=== PATIENT | female | born 1970 | race Caucasian/White ===

== ENCOUNTER 2018-06-14 00:12 | Emergency (ER) | payer SELFPAY ==
[~2018-06-14] VITALS: Ht 154.9 cm; Wt 70.4 kg
[~2018-06-14 00:12] MED LIST: iron PO
[2018-06-14] MEDS ORDERED: KETOROLAC 60MG/2ML VIAL IM STA (08:07)
[2018-06-14 09:00] VITALS: BP 130/65
== END 2018-06-14 11:23 | disposition home or self-care (01) ==
LOC: ER 00:12
DX: S83.92XA Sprain of unspecified site of left knee, initial encounter (principal); D64.9 Anemia, unspecified; X50.1XXA Overexertion from prolonged static or awkward postures, initial encounter; Y93.89 Activity, other specified; Y92.89 Other specified places as the place of occurrence of the external cause; Y99.8 Other external cause status
CPT/HCPCS: 73560; 96372; 99283; J1885; L1830